=== PATIENT | female | born 1940 | race Caucasian/White ===

== ENCOUNTER 2019-02-08 05:58 | Inpatient (IN) ==
--- NOTE | 2019-01-26 13:28 | PAT Medication Instructions ---
Medication Instructions Date of Service January 26, 2019 Home Medications [place]-3 Fish Oil 1 cap PO BID aspirin 81 mg PO QAM calcium carbonate [Calcium 500] 2 tab PO QAM coenzyme Q10 [CoQ-10] 30 mg PO BID estradiol [Estrace] 1 g VAGINAL WK [Glucosamine-MSM Complex] 1 tab PO BID levothyroxine 75 mcg PO QAM multivitamin 1 tab PO QAM oxyquinoline-sod.lauryl sulfat [Trimo-Tejeda Jelly] 1 dose VAGINAL WK pravastatin 40 mg PO UD Continue as directed pravastatin 40 mg PO UD (OK to take morning of surgery) oxyquinoline-sod.lauryl sulfat [Trimo-Tejeda Jelly] 1 dose VAGINAL WK STOP taking 2 weeks before surgery [place]-3 Fish Oil 1 cap PO BID coenzyme Q10 [CoQ-10] 30 mg PO BID [Glucosamine-MSM Complex] 1 tab PO BID If surgery is within 2 weeks, stop taking as soon as possible. DO NOT take the morning of surgery calcium carbonate [Calcium 500] 2 tab PO QAM multivitamin 1 tab PO QAM Take morning of surgery With a small sip of water, OTHERWISE NOTHING TO EAT OR DRINK AFTER MIDNIGHT: aspirin 81 mg PO QAM levothyroxine 75 mcg PO QAM Other Notes If you have any questions please call us at [phone] or [phone] or [phone] or [phone]
--- NOTE | 2019-01-27 11:20 | Anesthesiology Consultation ---
Date of Service January 27, 2019 Assessment & Plan (1) Encounter for pre-operative examination: *PT HAS A PESSARY AND IS CONCERNED ABOUT HAVING URINARY CATHETER WITH SURGERY--surgeon's office made aware of patient's concerns. Chart Review Chart Review: Acceptable Risk for Surgery and Patient seen in Pre Admission Testing Teaching & Discussion Instructed NPO after midnight before surgery, except medications with 15 cc of water. Medication instructions provided according to the PAT guidelines. History Surgery Operation Date: 02/08/19 10:40 Proposed Procedures p Right Knee Uni Compartment Versus - Erick Neal MD s Right Total Knee Replacement - Erick Neal MD Height/Weight Height: 5 ft 4 in Weight: 84.5 kg Allergies Allergy/AdvReac Type Severity Reaction Status Date / Time tramadol AdvReac Intermediate Parasthesias Verified 01/27/19 11:18 in 's Medications Home Medications Medication Instructions Recorded Confirmed Last Taken [place]-3 Fish Oil 1 cap PO BID 01/05/19 01/05/19 Unknown aspirin 81 mg PO QAM 01/05/19 01/05/19 Unknown calcium carbonate [Calcium 500] 2 tab PO QAM 01/05/19 01/05/19 Unknown coenzyme Q10 [CoQ-10] 30 mg PO BID 01/05/19 01/05/19 Unknown estradiol [Estrace] 1 g VAGINAL WK 01/05/19 01/05/19 Unknown wxefipxry-dkx-G-anders-herbal 21 1 tab PO BID 01/05/19 01/05/19 Unknown [Glucosamine-MSM Complex] levothyroxine 75 mcg PO QAM 01/05/19 01/05/19 Unknown multivitamin 1 tab PO QAM 01/05/19 01/05/19 Unknown oxyquinoline-sod.lauryl sulfat 1 dose VAGINAL WK 01/05/19 01/05/19 Unknown [Trimo-Tejeda Jelly] pravastatin 40 mg PO UD 01/05/19 01/05/19 Unknown Past Medical History Medical History GERD (gastroesophageal reflux disease) History of melanoma Hyperlipidemia Hypothyroidism Osteoarthritis Exercise / Class Metabolic Activity II 4-5 Yardwork/Stairs/Walk up hill (Denies CP or SOB with stairs) Past Surgical History Surgical History History of colonoscopy W/ POLYPECTOMY History of melanoma excision History of tooth extraction History of total hip arthroplasty BL Past Anesthesia History No Hx of Anesthesia Complications and No Family Hx of Anesthesia Complications Pt recalls nausea/vomiting in pre-op prior to 02/2018 [facility] "after they gave me something" -- nothing noted in records. History of PONV No Hx of PONV and No Hx of Motion Sickness Social History Smoking Status: Never smoker Do You Dip or Chew Tobacco: No Hx Alcohol Use: No Hx Substance Use: No substance use type: does not use Review of Systems Pt denies any recent chest pain, shortness of breath, palpitations, cough, fever or URI. Physical Exam Vital Signs BP: 136/61 P: 53bpm SPO2: 98% RA T: 97.7 F R: 16 ENMT Mouth: + small oral opening (VERY SMALL); no dental restorations, no chipped teeth and no loose teeth Thyromental Distance: > or= 3.5 Finger Breadths (4) Mallampati Class: II Missing a few teeth Neck + short neck; neck extension not limited Respiratory normal respiratory effort Auscultation: lungs clear to auscultation bilaterally Cardiovascular Rate/Rhythm: regular rate and regular rhythm Heart Sounds: no murmur Vessels: no carotid bruit Extremities: no edema Testing Chest X-Ray Date: 01/27/19 Findings: + NAD Laboratory Results 01/27/19 11:40 01/27/19 11:40 Blood Type A Positive 01/27/19 11:40 Antibody Screen NEGATIVE 01/27/19 11:40 PT 10.4 Seconds (9.0-12.0) 01/27/19 11:40 INR 1.0 (0.9-1.1) 01/27/19 11:40 APTT 25.9 Seconds (21.0-31.0) 01/27/19 11:40
--- NOTE | 2019-01-27 12:26 | XRay Report ---
XR chest Pre-admission PA/Lat CLINICAL HISTORY: pat preoperative evaluation COMPARISON STUDY: 06/25/2015 FINDINGS: The bones soft tissues and hemidiaphragms are normal. The cardiomediastinal silhouette is n ormal. The lungs are clear. The pulmonary vasculature is normal. IMPRESSION: Negative chest. The above report was generated using voice recognition software. It may contain grammatical, syntax or spelling errors. Electronically signed by: Yayo Florence M.D. 01/27/2019 12:25 PM
[2019-01-27 12:50] LABS: Basophils # (auto) 0.03 K/uL (0-0.2); Basophils % (auto) 0.4 %; Eosinophils % (auto) 4.2 %; Hematocrit (blood only) 40.9 % (37-47); Hemoglobin 13.6 g/dL (12.0-16.0); Immature Granulocytes # (auto) 0.01 K/uL (0.00-0.02); Immature Granulocytes % (auto) 0.1 %; Lymphocytes % (auto) 37.9 %; Mean Corpuscular Hgb Conc 33.3 g/dL (32-36); Mean Corpuscular Volume 90.5 fL (80-100); Mean Platelet Volume 10.2 fL (7.4-10.4); Monocytes # (auto) 0.56 K/uL (0.11-0.59); Monocytes % (auto) 7.9 %; Neutrophils # (auto) 3.52 K/uL (1.4-6.5); Neutrophils % (auto) 49.5 %; Platelet Count 250 K/uL (130-400); RDW Coefficient of Variation 13.4 % (11.5-14.5); RDW Standard Deviation 44.4 fL (36.4-46.3); Red Blood Count 4.52 M/uL (4.2-5.4); White Blood Count 7.12 K/uL (4.8-10.8)
[2019-01-27 13:07] LABS: Partial Thromboplastin Time 25.9 Seconds (21.0-31.0); Prothrombin Time 10.4 Seconds (9.0-12.0)
[2019-01-27 13:15] LABS: BUN Creatinine Ratio 21.2 (10-20); C Reactive Protein 0.36 mg/dl (0-0.29); Calcium 9.8 mg/dl (8.5-10.1); Creatinine Clr Calc Pharmacy 53.5 ml/min; Est GFR (African American) 68.3; Est GFR (Non-African American) 58.9; Potassium 4.7 mmol/L (3.5-5.1)
--- NOTE | 2019-02-05 13:02 | History and Physical Report ---
DATE OF ADMISSION: 02/08/2019 CHIEF COMPLAINT: Right knee pain. HISTORY OF PRESENT ILLNESS: A 78-year-old white female, very independent and active patient who is well known to me from previous hip replacements, who presents for treatment of her right knee. Over the past several years, she has developed increased pain and discomfort in her right knee. She did have a hip surgery, left one done in 2014, right one done in 2018, has done well from this. She has become more active. She has had more and more pain in the right knee. Localized in the medial side of her knee. The more she walks, the more it hurts. It started to debilitate her and limit her activity and her lifestyle and her ability to maintain an independent lifestyle. She has nighttime pain. It does swell. Also feels a little bit unstable to her at times and she would like to have this fixed. PAST MEDICAL HISTORY: 1. Hypothyroidism. 2. Melanoma resection. 3. Gastroesophageal reflux disease. 4. Elevated cholesterol. PAST SURGICAL HISTORY: Previous surgeries include: 1. Melanoma resection. 2. Cataract surgery. 3. Left hip replacement done on 06/29/2015. 4. Right hip replacement done on 03/25/2018. ALLERGIES: None. CURRENT MEDICINES: 1. Aspirin 81 mg daily. 2. Multivitamin. 3. Bone-Care 1000 mg a day. 4. [place]-3. 5. Coenzyme Q. 6. Glucosamine. 7. Chondroitin. 8. Levothyroxine 75 mcg a day. 9. Estrace once a week. 10. Diclofenac p.r.n. SOCIAL HISTORY: A 78-year-old white female. She lives by herself. Her daughter assists with her care. Quite active. Does not smoke. FAMILY HISTORY: Noncontributory. REVIEW OF HISTORY: Negative for diabetes, neurologic problem, vascular problem, bleeding disorders. No chest pain or shortness of breath. No history of DVT or PE. No known bleeding problems. PHYSICAL EXAMINATION: GENERAL: Reveals a healthy, pleasant, spry female. Looks to be in excellent health. HEENT: Benign. NECK: Supple. No lymphadenopathy. LUNGS: Clear to auscultation. HEART: Regular rate and rhythm. ABDOMEN: Soft, nontender, nondistended. EXTREMITIES: Grossly neurovascularly intact except as follows: Examination of the right knee reveals the patient walks with slightly antalgic gait. She has got varus alignment to her knee. She is tender over the medial joint line. She has got some slight bony hypertrophy medially. Small knee effusion. Range of motion is near full extension to 125 degrees of flexion. There is no instability. No pain with hip motion. X-RAYS: X-rays of the right knee reviewed. She has advanced right knee medial compartment DJD. She has complete loss of her medial joint space. She has subchondral sclerosis. She has got some osteophytes off the medial femoral condyle and medial tibial plateau. Her lateral patellofemoral joints looked pretty well preserved. With stress testing, medial side opens up and lateral side is pretty well preserved. ASSESSMENT: A 78-year-old white female with status post bilateral hip replacement with advanced right knee medial compartment degenerative joint disease. She has failed conservative treatment and would like to have her right knee fixed. PLAN: We talked about treatment options including partial versus full knee replacement. After further discussion, we are going to proceed with a right partial knee replacement. If we get in there and disease is too bad, we will do a full knee replacement. The risks and benefits of partial and full knee replacement were explained to the patient include but not limited to DVT, PE, , infection, neurological injury, vascular injury, bleeding problem, pain, limited range of motion, stiffness, failure to relieve her symptoms, incomplete relief of symptoms, need for further surgery in the future, fracture, leg length inequality, nerve palsy, etc. The patient understands and desires to proceed. Informed consent was obtained. The patient did not do well with pain medicines in the past and would like to just stick to Tylenol and we will see if we can manage her pain postoperatively with Tylenol. I did tell her she is liable to have a little bit more pain with this than with her hip surgery. She is planning to be discharged to home with either home health or outpatient therapy.
[2019-02-08] MEDS ORDERED: GABAPENTIN 300 MG PO SCH (06:00)
[2019-02-08] MEDS ORDERED: METOCLOPRAMIDE HCL 10 MG TABLET PO SCH (06:00)
[2019-02-08] MEDS ORDERED: LR 60ML/HR IV SCH (06:00)
[2019-02-08] MEDS ORDERED: BUPIVACAINE LIPOSOME/PF 266 MG, BUPIVACAINE/EPINEPHRINE 50 ML, SODIUM CHLORIDE 0.9% 30 ... INFIL SCH (06:00)
[2019-02-08] MEDS ORDERED: ACETAMINOPHEN 500 MG TAB PO SCH (06:00)
[2019-02-08] MEDS ORDERED: FAMOTIDINE 20 MG TAB PO SCH (06:00)
[2019-02-08] MEDS ORDERED: LR 500ML BOLUS, THEN 15ML/HR IV SCH (06:00)
[2019-02-08] MEDS ORDERED: CEFAZOLIN 2000MG 2,000 MG/15 ML SYR IV SCH (06:00)
[2019-02-08] MEDS ORDERED: EPINEPHrine INJ 1 MG/ML AMP ONE ×2 (06:31→08:51)
[2019-02-08] MEDS ORDERED: BUPIVACAINE 0.5 % 5 MG/1 ML PF 10ML VIAL ONE (06:31)
[2019-02-08] MEDS ORDERED: ROPIVACAINE 0.5% 5 MG/ML 30 ML VIAL ONE (06:31)
--- NOTE | 2019-02-08 06:49 | History & Physical Bridge Note ---
Date of Service February 08, 2019 History & Physical Bridge Note I have examined the patient, reviewed the History & Physical and in the interval since the performance of the History & Physical I have noted the following changes of clinical significance: no changes noted
[2019-02-08] MEDS ORDERED: MIDAZOLAM HCL 1 MG/ML 2ML VIAL ONE (07:06)
[2019-02-08] MEDS ORDERED: fentaNYL citrate 100 MCG/2 ML VIAL ONE (07:06)
[2019-02-08] MEDS ORDERED: SCOPOLAMINE 1.5 MG TDSY ONE (08:30)
[2019-02-08] MEDS: TRANEXAMIC ACID 1,000 MG **IV Pre-op IV SCH ×2 (08:44→10:21)
[2019-02-08] MEDS ORDERED: SCOPOLAMINE 1.5 MG TDSY TD SCH ×2 (08:45→13:00)
[2019-02-08] MEDS ORDERED: BUPIVACAINE 0.25% 30 ML VIAL ONE (08:51)
[2019-02-08] MEDS ORDERED: BUPIVACAINE LIPOSOME 1.3% 266 MG/20 ML VIAL ONE (08:52)
[2019-02-08] MEDS ORDERED: BACITRACIN INJ 50,000 UNIT VIAL ONE (08:52)
[2019-02-08] MEDS ORDERED: SODIUM CHLORIDE 0.9% PF 50 ML VIAL ONE (08:52)
[2019-02-08] MEDS ORDERED: ATROPINE SULFATE 0.1 MG/ML 10ML SYR IV PRN (09:05)
[2019-02-08] MEDS ORDERED: NALOXONE HCL 0.4 MG/1 ML VIAL/CARP IV PRN ×2 (09:05→12:05)
[2019-02-08] MEDS ORDERED: ePHEDrine sulfate 50 MG/ML AMP IV PRN (09:05)
[2019-02-08] MEDS ORDERED: FLUMAZENIL 0.1 MG/1 ML 10 ML VIAL IV PRN (09:05)
[2019-02-08] MEDS ORDERED: fentaNYL citrate 100 MCG/2 ML VIAL IV PRN (09:05)
[2019-02-08] MEDS ORDERED: PROMETHAZINE HCL 12.5 MG in SODIUM CHLORIDE 0.9% 50 ML IV PRN (09:05)
[2019-02-08] MEDS ORDERED: ONDANSETRON INJ 2 MG/ML 2 ML VIAL IV PRN ×2 (09:05→12:05)
[2019-02-08] MEDS ORDERED: ONDANSETRON INJ 2 MG/ML 2 ML VIAL ONE (09:50)
--- NOTE | 2019-02-08 10:58 | Post Operative Brief Note ---
Immediate Post Op Note v1 Date of Surgery February 08, 2019 Pre & Post Diagnosis Operation Date: 02/08/19 08:50 Pre-Op Diagnosis: RIGHT KNEE DEGENERATIVE JOINT DISEASE & KNEE PAIN Post-Op Diagnosis: RIGHT KNEE DEGENERATIVE JOINT DISEASE & KNEE PAIN Procedure Operation Date: 02/08/19 08:50 Actual Procedures p Right Knee Uni Compartment/ cemented(Right) - Erick Neal MD Surgeon Erick Neal MD Picking Crew Supervisor Tammy, PAC Estimated Blood Loss 25 Findings Consistent with Post-Op Diagnosis Fluids 700 cc Specimens Right Knee Drains Ernst Catheter Anesthesia Type Spinal MAC Complications none Disposition Accompanied Patient To Recovery: No Disposition: Recovery Room
--- NOTE | 2019-02-08 11:22 | XRay Report ---
RIGHT KNEE 2 VIEWS History: Right knee medial unicondylar prosthesis. Degenerative arthritis. Postop. FINDINGS: The patient is status post a right knee medial unicondylar prosthesis. The hardware is inta ct. No fracture or dislocation. Skin susan are in place. IMPRESSION: Right knee medial unicondylar prosthesis. No evidence for hardware complication. Electronically signed by: Corbin Lowry M.D. 02/08/2019 11:21 AM
--- NOTE | 2019-02-08 11:39 | Anesthesiology Progress Note ---
Date of Service February 08, 2019 Anesthesia Post Procedure Vital Signs Vital Signs: Temp Pulse Pulse Pulse Resp BP BP 02/08/19 11:35 36.6 C 02/08/19 11:21 65 16 120/56 L 02/08/19 11:20 67 12 02/08/19 11:16 62 19 108/58 L 02/08/19 11:15 68 20 02/08/19 11:11 65 14 127/58 L 02/08/19 11:06 78 14 128/65 02/08/19 11:05 36.5 C 78 78 15 128/65 02/08/19 06:41 36.3 C L 55 L 18 154/81 H Pulse Ox 02/08/19 11:35 98 02/08/19 11:21 100 02/08/19 11:20 100 02/08/19 11:16 100 02/08/19 11:15 100 02/08/19 11:11 100 02/08/19 11:06 100 02/08/19 11:05 97 02/08/19 06:41 98 Pain Intensity Right Knee: Pain Intensity: 0 Transfer of Care Handoff Completed per policy Notes Mental Status: alert / awake / arousable Patient Amnestic to Procedure: Yes Nausea / Vomiting: adequately controlled Pain: adequately controlled Airway Patency, RR, SpO2: stable & adequate BP & HR: stable & adequate Hydration State: stable & adequate Neuraxial Anesthesia: was administered and sensory block is resolving Anesthetic Complications: no major complications apparent
[2019-02-08] MEDS ORDERED: METOCLOPRAMIDE HCL INJ 5 MG/ML 2 ML VIAL IV PRN (12:05)
[2019-02-08] MEDS ORDERED: HYDROmorphone INJ 0.5 MG/0.5 ML SYR IV PRN (12:05)
[2019-02-08] MEDS ORDERED: ALUMINUM/MAGNESIUM SUSP 30 ML UDC PO PRN (12:05)
[2019-02-08] MEDS ORDERED: BISACODYL 10 MG SUPP PR PRN (12:05)
[2019-02-08] MEDS ORDERED: MAGNESIUM HYDROXIDE SUSP 30 ML UDC PO PRN (12:05)
[2019-02-08] MEDS ORDERED: PRAVASTATIN SOD 40 MG TAB PO SCH (12:05)
[2019-02-08] MEDS: ACETAMINOPHEN 500 MG TAB PO SCH ×3 (13:59→21:00)
[2019-02-08] MEDS: SODIUM CHLORIDE 0.9% 1000ML 1,000 ML IV SCH ×2 (14:00→22:46)
--- NOTE | 2019-02-08 14:11 | Operative Report ---
DATE OF OPERATION: 02/08/2019 SURGEON: Erick Neal MD AWNING CRAFTSPERSON: SRAVAN Plunkett PREOPERATIVE DIAGNOSIS: Right knee medial compartment degenerative joint disease. POSTOPERATIVE DIAGNOSIS: Same. PROCEDURE PERFORMED: Right Biomet [place] mobile-bearing partial knee replacement. COMPLICATIONS: None. ESTIMATED BLOOD LOSS: 25 mL. FLUID REPLACEMENT: 700 mL crystalloid fluid replacement. TOURNIQUET TIME: 64 minutes at 300 mmHg. ANESTHESIA: Spinal with adductor canal block. DRAINS: None. SPECIMENS: Right knee sent for pathology. OPERATIVE INDICATIONS: The patient is a 78-year-old very active, independent female who has had a long history of right knee pain that has gradually gotten worse over the past 4-5 years. She has been through extensive conservative treatment including injections and medicines without adequate relief. X-ray showed progressive medial compartment joint space loss. Her symptoms are localized in the medial side of her knee. She would like to proceed with partial knee replacement. OPERATIVE FINDINGS: Operative findings revealed advanced medial compartment DJD with grade 4 houq-jg-silq disease. Not much eburnation, but mostly just cartilage wear down to bone. The lateral and patellofemoral compartment revealed some mild degenerative changes, grade 2 at best. Her ACL was intact. OPERATIVE IMPLANTS: Operative implants consisted of: 1. A Biomet [place] size small femoral component. 2. A Biomet [place] size AA right medial tibial tray. 3. A 4 mm mobile-bearing insert. DESCRIPTION OF PROCEDURE: The patient was taken to the operating room, identified, and placed on the operating table in supine position. All contact areas were appropriately padded. IV antibiotics were provided by the anesthesia team. Spinal anesthetic and adductor canal block had been provided in the holding area. Ernst catheter was placed in sterile fashion. Right thigh tourniquet was then placed, and the right lower extremity was then prepped and draped in usual sterile fashion. The right leg was elevated and exsanguinated with Esmarch, and tourniquet was placed at 300 mmHg. An anterior approach of the right knee was then performed through a longitudinal incision extending from the superior pole of the patella to the medial aspect of the tibial tubercle. Sharp dissection was carried through subcutaneous tissue down below the extensor mechanism. A medial parapatellar arthrotomy incision was made. Some slight subperiosteal dissection was carried out medially. Great care was taken to protect the MCL. The fat pad was resected. I then examined the knee, and the lateral compartment was well preserved. The patellofemoral compartment looked well preserved. We elected to proceed with partial knee replacement. The osteophytes were taken off the intercondylar notch area. The femur was sized with a size small spoon. The external tibial alignment jig was then placed in the anterior face of the tibia and adjusted to the small spoon with a 4-G clamp. The tibial guide was pinned in place. The proximal tibial cut was made. The tibia sized to a AA. Attention was then drawn to the femur. The distal femur was entered with a sharp drill. The intramedullary canal was suctioned. The small femoral template was then placed on the distal femur and fixed to the IM roberto. The holes were drilled for the femoral component. The posterior cutting guide was placed, and the posterior cut was made. I then used the 0 spigot to mill the distal femur. I then resected the medial meniscus. I then trialed the knee, and the 4 feeler gauge fit in flexion and the 3 in extension. We then used the 3 spigot and milled the distal femur. I trialed the knee again, and it was still a little tight in extension, so I used the 4 spigot and milled the femur again. We then placed the trial implants, and the 4 feeler gauge fit appropriate in flexion and extension. We proceeded to place these implants. All trial implants were removed. The posterior osteophyte cutting guide was placed, and the posterior osteophyte was removed as well as the anterior bone for the femoral component. The cement drill was used to create holes in the distal femur for cement interdigitation. The tibial tray was then pinned, and the toothbrush blade was used to create the keel for the tibial tray. I then placed the trial implants again, and the 4 implant fit appropriately. We elected to place these implants. All trial implants were removed. I irrigated the wound extensively. A single patch of [place] G cement was mixed. A Biomet size AA right medial tibial tray was cemented in place followed by a small femoral component. All extraneous cement was removed. I brought the knee out into about 30 degrees short of full extension, placed the 4 paddle until the cement hardened. We then removed all extraneous cement. I then trialed the knee one more time, and we elected to place a 4 insert. The permanent 4 mm insert was placed. The knee appeared appropriately balanced. Attention was then drawn toward closing. The wound was irrigated with copious amounts of pulsatile lavage solution. I did inject locally with 100 mL of a combination of 20 mL of Exparel, 30 mL of normal saline, 50 mL of 0.25% Marcaine with epinephrine. The patient did receive 1 gram of tranexamic acid. The tourniquet was then let down for final tourniquet time of 64 minutes. Hemostasis was assured with use of electrocautery. The extensor mechanism was then closed with #1 Vicryl suture in a [id number] fashion. Extensor mechanism was checked and found to be intact. The subcutaneous tissue was then closed with 2 Dexon suture in a buried interrupted fashion. Skin was closed with skin susan. Leg was then cleaned, dried, and a sterile dressing of Xeroform, 4 x 4's, sterile cast padding, and Philip bandage were applied. The patient was then transferred to the recovery room in stable condition. The patient tolerated the procedure well with no complications. All needle and sponge counts were correct at the end of the operation. I attest to the content of the Intraoperative Record and any orders documented therein. Any exception s are noted below.
[2019-02-08] MEDS ORDERED: PRAVASTATIN SOD 20 MG TAB PO SCH (17:00)
[2019-02-08] MEDS: CHECK SCOPOLAMINE PATCH PLACEMENT SCH ×2 (17:15→23:37)
[2019-02-08] MEDS: FERROUS GLUCONATE 324 MG TAB PO SCH (17:21)
[2019-02-08] MEDS: CEFAZOLIN 2000MG 2,000 MG/15 ML SYR IV SCH (17:21)
[2019-02-08] MEDS: KETOROLAC TROMETHAMINE 15 MG/ML VIAL IV SCH ×2 (17:21→23:37)
--- NOTE | 2019-02-08 17:41 | Progress Note ---
DATE: 02/08/2019 SUBJECTIVE: A 78-year-old white female postop from a right partial knee replacement. She is doing well. Not having any pain yet. Feels a bit groggy. No chest pain or shortness of breath. Not feeling dizzy or lightheaded. OBJECTIVE: VITAL SIGNS: Temperature 36.2. Vital signs stable. PHYSICAL EXAMINATION: GENERAL: Reveals a pleasant elderly female. She is lying in bed, looks pretty comfortable. She is easily arousable, but falls asleep easily as well. LUNGS: Clear to auscultation. HEART: Regular rate and rhythm. ABDOMEN: Soft, nontender, nondistended. EXTREMITIES: Grossly neurovascularly intact except as follows: Examination of the right leg reveals the leg to be well aligned. Dressing is clean, dry and intact. She can dorsiflex and plantarflex her foot appropriately. She is neurologically intact. ASSESSMENT: A 78-year-old white female postoperative from a right partial knee replacement, doing reasonably well. Pain is controlled. She is neurologically intact. PLAN: 1. DVT prophylaxis including thigh-high TEDs, SCDs, and aspirin twice a day. 2. PT/OT. Weight bear as tolerated. Right total knee protocol. 3. Pain control, doing pretty well with current pain regimen. We are going to try and limit narcotics. She does not do well with Toradol. We will try and stick to Toradol and Tylenol. 4. Disposition: Plan to discharge to home. She may do some home health for a while. We will see how she is doing tomorrow.
[2019-02-08] MEDS: DOCUSATE SODIUM 100 MG CAP PO SCH (20:59)
[2019-02-08] MEDS: ASPIRIN 81 MG ECTAB PO SCH (20:59)
[2019-02-08] MEDS ORDERED: SENNA 8.6 MG TAB PO SCH (21:00)
[2019-02-08] MEDS ORDERED: NON-FORMULARY MEDICATION (Coenzyme Q10 [Coq-10] 30 MG) PO SCH (21:00)
[2019-02-09] MEDS: CEFAZOLIN 2000MG 2,000 MG/15 ML SYR IV SCH (01:41)
[2019-02-09] MEDS ORDERED: LEVOTHYROXINE SODIUM 75 MCG TABLET PO SCH (06:30)
[2019-02-09] MEDS: KETOROLAC TROMETHAMINE 15 MG/ML VIAL IV SCH ×3 (06:38→12:06)
[2019-02-09 06:40] LABS: Hematocrit (blood only) 35.4 % (37-47); Hemoglobin 11.7 g/dL (12.0-16.0); Mean Corpuscular Hgb Conc 33.1 g/dL (32-36); Mean Platelet Volume 9.7 fL (7.4-10.4); Platelet Count 181 K/uL (130-400); RDW Coefficient of Variation 13.9 % (11.5-14.5); RDW Standard Deviation 46.3 fL (36.4-46.3); Red Blood Count 3.89 M/uL (4.2-5.4); White Blood Count 6.58 K/uL (4.8-10.8)
[2019-02-09 07:11] LABS: BUN Creatinine Ratio 16.3 (10-20); Creatinine Clr Calc Pharmacy 49.6 ml/min; Est GFR (African American) 62.6; Potassium 4.4 mmol/L (3.5-5.1)
[2019-02-09] MEDS: ACETAMINOPHEN 500 MG TAB PO SCH (07:46)
[2019-02-09] MEDS: CHECK SCOPOLAMINE PATCH PLACEMENT SCH (07:47)
[2019-02-09] MEDS: FERROUS GLUCONATE 324 MG TAB PO SCH (07:49)
[2019-02-09] MEDS: ASPIRIN 81 MG ECTAB PO SCH (07:50)
[2019-02-09] MEDS: DOCUSATE SODIUM 100 MG CAP PO SCH (07:50)
[2019-02-09 07:57] VITALS: BP 130/80; TEMP 97.7; O2SAT 92
--- NOTE | 2019-02-09 08:11 | Anesthesiology Progress Note ---
Date of Service February 09, 2019 Anesthesia Post Procedure Vital Signs Vital Signs: Temp Pulse Pulse Pulse Resp BP BP 02/09/19 07:54 36.5 C 54 L 16 130/80 02/09/19 02:09 36.6 C 48 L 15 115/69 02/08/19 23:06 36.2 C L 51 L 16 128/78 02/08/19 19:04 36.4 C L 40 L 15 131/72 02/08/19 15:41 36.2 C L 51 L 15 118/71 02/08/19 13:45 51 L 18 117/75 02/08/19 12:48 53 L 18 100/60 02/08/19 12:29 72 18 123/75 02/08/19 11:55 36.4 C L 62 16 120/67 02/08/19 11:36 62 14 116/57 L 02/08/19 11:35 36.6 C 61 18 02/08/19 11:31 64 14 118/55 L 02/08/19 11:30 62 14 02/08/19 11:26 63 14 118/58 L 02/08/19 11:22 63 17 02/08/19 11:21 65 16 120/56 L 02/08/19 11:20 67 12 02/08/19 11:16 62 19 108/58 L 02/08/19 11:15 68 20 02/08/19 11:11 65 14 127/58 L 02/08/19 11:06 78 14 128/65 02/08/19 11:05 36.5 C 78 78 15 128/65 Pulse Ox 02/09/19 07:54 92 02/09/19 02:09 95 02/08/19 23:06 96 02/08/19 19:04 98 02/08/19 15:41 98 02/08/19 13:45 100 02/08/19 12:48 100 02/08/19 12:29 02/08/19 11:55 97 02/08/19 11:36 99 02/08/19 11:35 98 02/08/19 11:31 97 02/08/19 11:30 99 02/08/19 11:26 99 02/08/19 11:22 100 02/08/19 11:21 100 02/08/19 11:20 100 02/08/19 11:16 100 02/08/19 11:15 100 02/08/19 11:11 100 02/08/19 11:06 100 02/08/19 11:05 97 Pain Intensity Right Knee: Pain Intensity: 0 Notes Mental Status: alert / awake / arousable and participated in evaluation Patient Amnestic to Procedure: Yes Nausea / Vomiting: adequately controlled Pain: adequately controlled Airway Patency, RR, SpO2: stable & adequate BP & HR: stable & adequate Hydration State: stable & adequate Neuraxial Anesthesia: was administered and sensory block resolved Anesthetic Complications: no major complications apparent
[2019-02-09] MEDS ORDERED: MULTIVITAMIN TAB PO SCH ×2 (09:00)
[2019-02-09] MEDS ORDERED: CALCIUM CARBONATE 1250MG TAB PO SCH (09:00)
[2019-02-09 12:49] VITALS: PULSE 48
--- NOTE | 2019-02-09 13:35 | Progress Note ---
DATE: 02/09/2019 SUBJECTIVE: A 78-year-old white female postop day 1 from a right partial knee replacement. She is doing well. Pain is controlled with Tylenol. Therapy went well. No chest pain or shortness of breath. Anxious to get home. OBJECTIVE: VITAL SIGNS: Temperature 36.5. Vital signs stable. GENERAL: Physical examination shows a pleasant elderly female. She is sitting up at her bedside chair and looks comfortable. EXTREMITIES: Examination of the right leg reveals the dressing to be clean, dry and intact. She can dorsiflex and plantarflex her foot appropriately. She can do a good straight leg raise. She is neurologically intact. LABORATORY DATA: Hemoglobin is 11.7, hematocrit 35.4. Electrolytes are stable. ASSESSMENT: A 78-year-old white female postop day 1 from a right partial knee replacement, doing well. Pain is controlled. She is getting along reasonably well. PLAN: 1. DVT prophylaxis including thigh-high TEDs, SCDs, and aspirin twice a day. 2. PT/OT. Weight bear as tolerated. Right total knee protocol. 3. Pain control, doing well with current pain regimen. We are going to stick with Tylenol for pain control. 4. Disposition: She is planning to be discharged to home. She is going to do home therapy for now and see how things come along. I will be seeing her back 2 weeks postop.
--- NOTE | 2019-02-15 07:57 | Discharge Summary ---
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 SURGERY PERFORMED: Right partial knee replacement. SECONDARY DIAGNOSES: Hypothyroidism, melanoma, gastroesophageal reflux disease, elevated cholesterol. CONSULTS: None obtained. HISTORY AND PHYSICAL EXAMINATION: Well documented in the patient's chart. HOSPITAL COURSE: The patient was admitted on 02/08/2019 and underwent partial knee replacement. She tolerated the procedure well. There were no complications. She was transferred to the PACU postoperatively and later to the orthopedic floor for further care. She was given Ancef for antibiotic prophylaxis, INGA stockings, SCDs and aspirin for DVT prophylaxis. Vital signs were monitored during hospital stay and remained stable. She did not require any blood transfusions. There were no complications. By postoperative day 1, she was tolerating a regular diet, pain was controlled with oral pain medicine. She was participating in physical therapy. Postop day #1, she was discharged home. She was given printed discharge instructions including new prescriptions for Tylenol and aspirin. Continue home medications with the exception of her home dose of aspirin which was changed. Continue physical therapy, weightbearing as tolerated, INGA stockings. Follow up in approximately 2 weeks postop or sooner if any problems or concerns.
== END 2019-02-09 13:50 | disposition home or self-care (01) | DRG 470 ==
LOC: ASU 05:58 → 3E 11:02

== ENCOUNTER 2023-07-08 09:32 | Inpatient (IN) ==
--- NOTE | 2023-07-08 09:55 | Emergency Department Note ---
Impression & Plan Symptomatic bradycardia, SANDEEP (acute kidney injury) ED Provider Note HISTORY OF PRESENT ILLNESS: Patient is an 83-year-old female presenting with shortness of breath and lightheadedness. Patient reports that since yesterday she has been having some significant shortness of breath with any exertion, most notably when climbing her stairs from her basement. She states that she is intermittently been getting lightheaded as well. She is on amiodarone 400 mg twice daily for histor y of atrial flutter. She took 400 mg this morning. She went to her primary care provider's office for an outpatient follow-up today and was noted to be bradycardic at the clinic. Given her symptoms and her bradycardia, they called 911 for transfer to the ER. Other than her amiodarone being increased over the last 10 days, she has not had any other changes in medications. Denies any chest pain. Denies any shortness of breath at rest. She is on Eliquis and has not missed any doses. Denies any recent fevers, cough or abdominal pain. ROS: as above PHYSICAL EXAM: Constitutional: Patient appears in no acute distress. HENT: Head: Normocephalic and atraumatic. Eyes: EOMI, PERRL Mouth/Throat: Mucous membranes moist. Neck: Trachea midline. Neck supple. Cardiovascular: Bradycardic with regular rhythm. No murmurs, rubs or gallops. Intact distal pulses. Pulmonary/Chest: No respiratory distress. Breath sounds clear and equal bilaterally. No wheezes or rales. Abdominal: Abdomen soft, no tenderness, rebound or guarding. Musculoskeletal: No edema, tenderness or deformity noted. Skin: Warm and dry. No rash, erythema, pallor or cyanosis Psychiatric: Appropriate mood and affect for situation. Neurological: Alert and keenly responsive. CN II-XII grossly intact, moving all extremities equally and fully. MDM: - Vitals signs showed hypertension and bradycardia. - History obtained via patient. Patient presents with shortness of breath and lightheadedness. Patient reports that since yesterday she been having some shortness of breath with exertion and lightheadedness. She was admitted to the hospital recently in atrial flutter and she was discharged on 400 mg amiodarone twice daily. She states she took 400 mg this morning. She went to her PCPs office for follow-up clinic appointment and was found to be bradycardic and symptomatic in the clinic, prompting transfer to the ER. Patient denies any chest pain. She is on Eliquis. - Chronic conditions affecting care: hypothyroidism; HLD; Atrial flutter - Differential diagnoses include, but are not limited to: Dysrhythmia; electrolyte abnormality; ACS - Order placed for continuous cardiac monitoring. At this time, monitor showed rate of 42 bpm with normal sinus rhythm, per my interpretation. - External medical records reviewed. EMS run sheet reviewed. No medications given pre-hospital. - EKG reviewed by myself showed normal sinus rhythm. Rate bradycardic at 43 bpm. QTc 373. No acute ischemic changes. No obvious heart block. - Laboratory workup interpreted by myself showed normal WBC; stable electrolytes; SANDEEP (Cr 1.22 - baseline 1.0); normal troponin; elevated TSH (11.41) - CXR negative for pneumonia, per my interpretation. Noted to have a small right-sided pleural effusion - Discussed case with [facility] power plant technician, Dr. Loomis at 11:08 AM. He recommended holding the patient's amiodarone until follow-up with Dr. Win's clinic. He thought the patient could be discharged as she is hemodynamically stable and her work-up generally unremarkable. - Attempted to sit patient upright for an ambulatory challenge, but she became very lightheaded and dizzy with her heart rate of 37. Will admit for symptomatic bradycardia at this time. Bradycardia is likely secondary to her amiodarone dosing, but can reassess once the amiodarone has gone out of her system. - Discussion was had with child protective services social worker about patient's case and need for admission - Hospitalist consulted for admission - Patient admitted to [facility] hospitalist service for further evaluation and management. ASSESSMENT AND PLAN: Diagnosis: Symptomatic bradycardia; SANDEEP Plan: Admit Past Med/Surg History Medical History (Updated 07/08/23 @ 12:16 by Dionna Monroe MD) Atrial flutter Bursitis of left hip Elevated troponin Encounter for pre-operative examination GERD (gastroesophageal reflux disease) History of cardioversion History of melanoma Hyperlipidemia Hypothyroidism Mass of right forearm Osteoarthritis SOB (shortness of breath) Surgical History History of colonoscopy W/ POLYPECTOMY History of melanoma excision History of tooth extraction History of total hip arthroplasty BL Status post right partial knee replacement Family History Father Lung disease Sister Cancer Breast cancer Brother Heart disease Myocardial infarction Denies family history of Ovarian cancer Prostate cancer Colorectal cancer Social History Smoking Status: Never smoker Second Hand Exposure: No; Do You Dip or Chew Tobacco: No; Hx Alcohol Use: No Hx Substance Use: No Preferred Language: Croatian Communication Ability: Effective Visual Impairment: Limited Hearing Ability: Use of Hearing Aid Heat Treating Operator Required: No Beliefs That Will Affect Care: None marital status: / Current Living Situation: Alone current occupational status: retired How many Children do You have: 1 Feels Safe at Home: Yes Childhood Exposure to Second-Hand Smoke: No Diet: regular caffeine: Yes during the past year weight has: remained stable Dental Care, Regularly: Yes Physical Activity Frequency: Does not Exercise Seatbelt Use: always Sunscreen Use: Yes Do you think of yourself as: straight/heterosexual Gender Identity: Female Assistive Devices: Cane and Walker Allergies Allergies Allergy/AdvReac Type Severity Reaction Status Date / Time tramadol AdvReac Intermediate Parasthesias Verified 07/08/23 07:28 in [facility] clindamycin AdvReac Unknown Verified 07/08/23 07:28 Home Meds Home Medications Medication Instructions Recorded Confirmed multivitamin 1 tab PO QAM 01/05/19 07/08/23 calcium carbonate 600 mg calcium 600 mg PO BID 06/29/23 07/08/23 (1,500 mg) tablet (Calcium) losartan 25 mg tablet 12.5 mg PO QPM 06/29/23 07/08/23 pravastatin 40 mg tablet 40 mg PO QPM 06/29/23 07/08/23 ascorbate calcium (vitamin C) 500 500 mg PO DAILY 07/08/23 07/08/23 mg tablet levothyroxine 88 mcg tablet 88 mcg PO QAM 07/08/23 07/08/23 Previous Rx's Medication Instructions Recorded apixaban 5 mg tablet (Eliquis) 5 mg PO BID #60 tabs 07/01/23 amiodarone 200 mg tablet 400 mg PO BIDM #60 tabs 07/02/23 Results & Data (ED) Vital Signs Vital Signs - 24 hr 07/08/23 09:40 07/08/23 09:25 07/08/23 09:26 Temperature Source Oral Pulse Rate 46 L 40 L Pulse Rate [Apical] Pulse Rhythm [Apical] Pulse Strength [Apical] Respiratory Rate 18 Respiratory Effort / Characteristics Non-Labored Spontaneous Respiratory Depth Normal Respiratory Pattern Regular Blood Pressure 177/91 H Blood Pressure [Right Arm] Blood Pressure Mean 119 Blood Pressure Mean [Right Arm] Blood Pressure Position [Right Arm] Pulse Oximetry 97 97 Oxygen Delivery Method Room Air Room Air Sepsis Recent Fever Within 48 Hours No Sepsis New/Unexplained Change in Mental Status No Sepsis Action Taken by Nursing No Action Required 07/08/23 10:00 07/08/23 10:30 07/08/23 11:00 Temperature Source Pulse Rate Pulse Rate [Apical] 42 L 43 L 42 L Pulse Rhythm [Apical] Regular Regular Regular Pulse Strength [Apical] Normal Normal Normal Respiratory Rate 20 18 18 Respiratory Effort / Characteristics Non-Labored Spontaneous Non-Labored Spontaneous Respiratory Depth Normal Normal Respiratory Pattern Regular Regular Blood Pressure Blood Pressure [Right Arm] 161/74 H 149/71 H 177/91 H Blood Pressure Mean Blood Pressure Mean [Right Arm] 103 97 119 Blood Pressure Position [Right Arm] Sitting Pulse Oximetry 97 94 96 Oxygen Delivery Method Room Air Room Air Room Air Sepsis Recent Fever Within 48 Hours Sepsis New/Unexplained Change in Mental Status Sepsis Action Taken by Nursing Laboratory Data 07/08/23 09:46 07/08/23 09:46 Lab Results 07/08/23 07/08/23 Range/Units 09:46 09:46 WBC 6.80 (4.8-10.8) K/ul RBC 4.27 (4.20-5.40) M/uL Hgb 12.8 (12.0-16.0) g/dl Hct 39.4 (37.0-47.0) % MCV 92.3 (80.0-100.0) fL MCH 30.0 (25.0-34.0) pg MCHC 32.5 (32.0-36.0) g/dL RDW Std Deviation 47.7 H (36.4-46.3) fL RDW Coeff of Vangie 14.2 (11.5-14.5) % Plt Count 254 (130-400) K/uL MPV 10.1 (9.4-12.4) fL Immature Gran % (Auto) 0.4 % Neut % (Auto) 59.0 % Lymph % (Auto) 28.4 % [place] % (Auto) 8.2 % Eos % (Auto) 2.8 % Baso % (Auto) 1.2 % Neut # (Auto) 4.01 (1.40-6.50) K/uL Lymph # (Auto) 1.93 (1.20-3.40) K/uL [place] # (Auto) 0.56 (0.11-0.59) K/uL Eos # (Auto) 0.19 (0.00-0.50) K/uL Baso # (Auto) 0.08 (0.00-0.20) K/uL Immature Gran # (Auto) 0.03 (0.01-0.20) K/uL Sodium 140 (136-145) mmol/L Potassium 4.2 (3.5-5.1) mmol/L Chloride 106 (98-107) mmol/L Carbon Dioxide 28 (21-32) mmol/L Anion Gap 6 (3-11) BUN 15 (6-23) mg/dl Creatinine 1.22 H (0.6-1.2) mg/dl Est Cr Clr Drug Dosing 34.3 ml/min Est GFR ( Amer) 48.1 ml/min Est GFR (Non-Af Amer) 41.5 ml/min BUN/Creatinine Ratio 12.3 (10-20) Glucose 90 (70-99(Fasting)) mg/dl Calcium 9.8 (8.6-10.3) mg/dl Magnesium 2.1 (1.7-2.4) mg/dl Total Bilirubin 0.6 (0.2-1.0) mg/dl AST 26 (13-39) U/L ALT 42 (7-52) U/L Alkaline Phosphatase 62 (34-104) U/L Troponin I High Sens 7.5 (0-14) pg/ml Total Protein 6.8 (6.0-8.3) gm/dl Albumin 4.4 (3.4-5.0) gm/dl Globulin 2.4 L (2.5-4.0) gm/dl Albumin/Globulin Ratio 1.8 (0.9-2) TSH 11.410 H (0.300-4.500) uIu/ml Free T4 1.00 (0.61-1.60) ng/dl Imaging Data Radiologist's Impression: Chest X-Ray 07/08/23 09:39 XR chest 1V portable HISTORY: Dysrhythmia COMPARISON: Chest 06/29/2023. FINDINGS: No pneumothorax. The cardiac silhouette remains mildly enlarged. Mild interstitial thickening which is likely chronic. Small right pleural effusion. No evidence for pulmonary edema. There are patchy right basilar densities. IMPRESSION: 1. Small right pleural effusion with patchy right basilar densities. This may represent atelectasis or pneumonia. 2. Stable mild cardiomegaly. ACT 112: Negative or not required by law. Electronically signed by: Corbin Lowry M.D. 07/08/2023 10:22 AM Discharge Plan Visit Data Chief Complaint: Bradycardia Stated Complaint: bradycardia ED Provider: Dionna Monroe Discharge Problem: Symptomatic bradycardia, SANDEEP (acute kidney injury) Forms Stand Alone Forms: [facility] [employer] Prescriptions Prescriptions: No Action amiodarone 200 mg tablet 400 mg PO BIDM Qty: 60 0RF Patient Comments: 2nd with supper Rx Instructions: Amiodarone is 400 mg twice daily for 10 days then decrease to 200 mg only once a day-PER DC SUMMARY 07/01 ascorbate calcium (vitamin C) 500 mg tablet 500 mg PO DAILY multivitamin Tablet 1 tab PO QAM calcium carbonate [Calcium 600] 600 mg calcium (1,500 mg) Tablet 600 mg PO BID Patient Comments: 2nd dose with supper losartan 25 mg tablet 12.5 mg PO QPM Rx Instructions: Take with dinner pravastatin 40 mg tablet 40 mg PO QPM Eliquis 5 mg Tablet 5 mg PO BID Qty: 60 0RF Patient Comments: 2nd dose with supper levothyroxine 88 mcg tablet 88 mcg PO QAM Referrals Referrals: Latisha Gomez DO [Primary Care Provider] -
[2023-07-08 09:59] LABS: Basophils # (auto) 0.08 K/uL (0.00-0.20); Basophils % (auto) 1.2 %; Eosinophils # (auto) 0.19 K/uL (0.00-0.50); Eosinophils % (auto) 2.8 %; Hematocrit (blood only) 39.4 % (37.0-47.0); Hemoglobin 12.8 g/dl (12.0-16.0); Immature Granulocytes # (auto) 0.03 K/uL (0.01-0.20); Immature Granulocytes % (auto) 0.4 %; Lymphocytes # (auto) 1.93 K/uL (1.20-3.40); Lymphocytes % (auto) 28.4 %; Mean Corpuscular Hgb Conc 32.5 g/dL (32.0-36.0); Mean Corpuscular Volume 92.3 fL (80.0-100.0); Mean Platelet Volume 10.1 fL (9.4-12.4); Monocytes # (auto) 0.56 K/uL (0.11-0.59); Monocytes % (auto) 8.2 %; Neutrophils # (auto) 4.01 K/uL (1.40-6.50); Platelet Count 254 K/uL (130-400); RDW Coefficient of Variation 14.2 % (11.5-14.5); RDW Standard Deviation 47.7 fL (36.4-46.3); Red Blood Count 4.27 M/uL (4.20-5.40)
[2023-07-08 10:21] LABS: Albumin Globulin Ratio 1.8 (0.9-2); Albumin Level 4.4 gm/dl (3.4-5.0); BUN Creatinine Ratio 12.3 (10-20); Bilirubin,Total 0.6 mg/dl (0.2-1.0); Calcium 9.8 mg/dl (8.6-10.3); Creatinine Clr Calc Pharmacy 34.3 ml/min; Est GFR (African American) 48.1 ml/min; Est GFR (Non-African American) 41.5 ml/min; Globulin 2.4 gm/dl (2.5-4.0); Magnesium 2.1 mg/dl (1.7-2.4); Potassium 4.2 mmol/L (3.5-5.1); Total Protein 6.8 gm/dl (6.0-8.3)
[2023-07-08 10:26] LABS: Troponin I High Sensitivity 7.5 pg/ml (0-14)
[2023-07-08 10:36] LABS: Thyroid Stimulating Hormone 11.41 uIu/ml (0.300-4.500)
--- NOTE | 2023-07-08 10:46 | XRay Report ---
XR chest 1V portable HISTORY: Dysrhythmia COMPARISON: Chest 06/29/2023. FINDINGS: No pneumothorax. The cardiac silhouette remains mildly enlarged. Mild interstitial thickeni ng which is likely chronic. Small right pleural effusion. No evidence for pulmonary edema. There are patchy right basilar densities. IMPRESSION: 1. Small right pleural effusion with patchy right basilar densities. This may represent atelectasis o r pneumonia. 2. Stable mild cardiomegaly. ACT 112: Negative or not required by law. Electronically signed by: Corbin Lowry M.D. 07/08/2023 10:22 AM
[2023-07-08] MEDS ORDERED: SODIUM CHLORIDE 0.9% 500 ML IV ONE (11:26)
--- NOTE | 2023-07-08 12:19 | History & Physical Report ---
Date of Service July 08, 2023 Assessment & Plan (1) Symptomatic bradycardia: Plan: Symptomatic bradycardia With recent admission and cardioversion for a flutter, has been on amiodarone for 800 mg twice daily load Was discussed with cards, recommended holding amiodarone and following for improvement in bradycardia. Patient initially recommended for discharge home and observation however on attempted standing/ambulation she was lightheaded/dizzy with heart rate of 3842 and has been recommended for monitoring while amiodarone is held and pending improvement in symptoms of symptomatic bradycardia At time of hospitalist assessment patient is asymptomatic while laying flat, positive chronotropics/pacing is not indicated at time of admitting assessment No troponin elevation If gradually improves with troponin uptrend and symptoms improve may follow-up as outpatient with [facility]. Will follow on medical telemetry (2) SANDEEP (acute kidney injury): Plan: Baseline creatinine around 1, admitting creatinine 1.2 Losartan held Trend BMP daily Received IV fluid bolus in ER, defer additional. Appears near (3) Valvular heart disease: (4) Atrial flutter: Plan: S/p cardioversion without recurrence as noted (5) GERD (gastroesophageal reflux disease): Plan: Protonix prophylaxis ordered (6) Hyperlipidemia: Plan: Continue pravastatin (7) Hypothyroidism: Plan: Continue Synthroid, TSH pending Plan DVT prophylaxis: Anticoagulated due to history of a flutter, continue Eliquis Disposition: PCU Diet: Heart healthy CODE STATUS: Full code History of Present Illness Primary Care Provider: Latisha Gomez DO Rose is an 83-year-old female with recent hospitalization for atrial flutter s/p cardioversion and amiodarone load who presents with bradycardia following amiodarone 400 mg p.o. twice daily load. While in the ER she attempted to stand up and was lightheaded and dizzy with a heart rate of approximately 3842. She is recommended for observation for syme ptomatic bradycardia likely iatrogenic due to amiodarone, is recommended for monitoring and amiodarone hold. She does not have any chest pain, chest pressure, shortness of breath. No signs of recurrent ACS. EKG while in the ER is sinus bradycardia, no recurrence of atrial arrhythmia. Rose is seen at the bedside. She reports laying in bed she has no symptoms and feels well, but when she sat up she did get very lightheaded. She notes her heart rate was in the 50s yesterday, and then dropped even lower than that today. She has had some lightheadedness and weakness when attempting to go upstairs and walk. She reports she has not had any chest pressure or chest pain at any point. She has not passed out, denies syncope. No nausea/vomiting. Does have some shortness of breath with attempted exertion, none at rest. No wheezing. No fever/chills/sweats. She has been taking all her medications as directed, was concerned that her losartan could be causing low heart rate and that her amiodarone dose is too high. No other questions or concerns about Medical History: Reviewed Medications: Reviewed Surgical History: Reviewed Family history: Reviewed Allergies: Reviewed Social History: Reviewed Code Status: Full Allergies Allergy/AdvReac Type Severity Reaction Status Date / Time tramadol AdvReac Intermediate Parasthesias Verified 07/08/23 07:28 in [facility] clindamycin AdvReac Unknown Verified 07/08/23 07:28 Home Medications Medication Instructions Recorded Confirmed Type multivitamin 1 tab PO QAM 01/05/19 07/08/23 History calcium carbonate 600 mg calcium 600 mg PO BID 06/29/23 07/08/23 History (1,500 mg) tablet (Calcium) losartan 25 mg tablet 12.5 mg PO QPM 06/29/23 07/08/23 History pravastatin 40 mg tablet 40 mg PO QPM 06/29/23 07/08/23 History apixaban 5 mg tablet (Eliquis) 5 mg PO BID #60 tabs 07/01/23 07/08/23 Rx amiodarone 200 mg tablet 400 mg PO BIDM #60 tabs 07/02/23 07/08/23 Rx ascorbate calcium (vitamin C) 500 500 mg PO DAILY 07/08/23 07/08/23 History mg tablet levothyroxine 88 mcg tablet 88 mcg PO QAM 07/08/23 07/08/23 History Past Med/Surg History Medical History Atrial flutter Bursitis of left hip Elevated troponin Encounter for pre-operative examination GERD (gastroesophageal reflux disease) History of cardioversion History of melanoma Hyperlipidemia Hypothyroidism Mass of right forearm Osteoarthritis SOB (shortness of breath) Surgical History History of colonoscopy W/ POLYPECTOMY History of melanoma excision History of tooth extraction History of total hip arthroplasty BL Status post right partial knee replacement Family History Father Lung disease Sister Cancer Breast cancer Brother Heart disease Myocardial infarction Denies family history of Ovarian cancer Prostate cancer Colorectal cancer Social History Smoking Status: Never smoker Second Hand Exposure: No; Do You Dip or Chew Tobacco: No; Hx Alcohol Use: No Hx Substance Use: No Preferred Language: Hebrew Communication Ability: Effective Visual Impairment: Limited Hearing Ability: Use of Hearing Aid Testing Consultant Required: No Beliefs That Will Affect Care: None marital status: / Current Living Situation: Alone current occupational status: retired How many Children do You have: 1 Feels Safe at Home: Yes Childhood Exposure to Second-Hand Smoke: No Diet: regular caffeine: Yes during the past year weight has: remained stable Dental Care, Regularly: Yes Physical Activity Frequency: Does not Exercise Seatbelt Use: always Sunscreen Use: Yes Do you think of yourself as: straight/heterosexual Gender Identity: Female Assistive Devices: Cane and Walker Review of Systems Review of Systems: All systems reviewed & are unremarkable except as noted in HPI & below Physical Exam Physical Exam: General: A&Ox3. NAD. Cooperative. HEENT: Atraumatic, normocephalic. Vision and hearing grossly intact Pulm: CTAB A&P. -wheezes, -rales, -rhonchi. Symmetrical chest rise. No increased work of breathing. No respiratory distress. Cardiac: regular, brdaycardic, +sm. Radial pulses intact and symmetrical. Abdominal: Nontender, nondistended, soft. BS present. Extremities: Warm, dry. No edema Results & Data Results & Data Vital Signs (Past 12 Hours) Vital Signs Pulse Pulse Resp BP BP Pulse Ox O2 Del Method 07/08/23 11:00 42 L 18 177/91 H 96 Room Air 07/08/23 10:30 43 L 18 149/71 H 94 Room Air 07/08/23 10:00 42 L 20 161/74 H 97 Room Air 07/08/23 09:26 97 Room Air 07/08/23 09:25 40 L 18 177/91 H 97 Room Air 07/08/23 09:40 46 L PG Care Time/CCT Total # of Minutes Spent Total Time Spent with Patient: Total time spent is greater than 50% in coordination of care (as documented) at patient's floor/unit and/or counseling patient: Coding Level of Care Code 33864 INT INP/OBS CARE 3/75MIN Diagnoses Symptomatic bradycardia R00.1 SANDEEP (acute kidney injury) N17.9 Valvular heart disease I38 Atrial flutter I48.92 GERD (gastroesophageal reflux disease) K21.9 Hyperlipidemia E78.5 Hypothyroidism E03.9
[2023-07-08] MEDS ORDERED: ATROPINE SULFATE 0.1 MG/ML 10ML SYR IV PRN (12:30)
[2023-07-08 13:30] LABS: Appearance Urine Clear (Clear); Bacteria Urine Automated Negative (Negative); Bilirubin Urine Negative (Negative); Blood Urine Negative (Negative); Cast Urine Automated 0 /lpf (0-5); Color Urine Yellow; Epithelial Cell Urine Auto 0-5 /lpf (0-5); Glucose Urine UA Negative (Negative); Ketones Urine Negative (Negative); Leukocyte Esterase Urine Trace (Negative); Nitrite Urine Negative (Negative); Protein Urine Negative (Negative); RBC Urine Automated 0-4 /hpf (0-4); Specific Gravity Urine 1.007 (1.000-1.030); Urobilinogen Urine Negative (Negative)
--- NOTE | 2023-07-08 16:27 | Electrocardiogram Report ---
Test Reason : Blood Pressure : / mmHG Vent. Rate : 043 BPM Atrial Rate : 043 BPM P-R Int : 124 ms QRS Dur : 100 ms QT Int : 442 ms P-R-T Axes : 063 032 066 degrees QTc Int : 373 ms Marked sinus bradycardia Possible Left atrial enlargement Nonspecific T wave abnormality Abnormal ECG When compared with ECG of 30-JUN-2023 13:57, Premature atrial complexes are no longer Present QT has shortened Confirmed by Addi Loomis ([id number]) on 07/08/2023 4:26:54 PM Referred By: REFERRED SELF Confirmed By:Addi Loomis
[2023-07-08] MEDS ORDERED: LOSARTAN POTASSIUM 25 MG TAB PO SCH (21:00)
[2023-07-08] MEDS: PRAVASTATIN SOD 40 MG TAB PO SCH (21:18)
[2023-07-08] MEDS: CALCIUM CARBONATE 1250MG TAB PO SCH (21:18)
[2023-07-08] MEDS: APIXABAN 5 MG TABLET PO SCH (21:18)
[2023-07-09] MEDS: LEVOTHYROXINE SODIUM 88 MCG TABLET PO SCH (05:11)
[2023-07-09 06:27] LABS: Basophils # (auto) 0.05 K/uL (0.00-0.20); Basophils % (auto) 0.8 %; Eosinophils # (auto) 0.27 K/uL (0.00-0.50); Eosinophils % (auto) 4.2 %; Hematocrit (blood only) 37.9 % (37.0-47.0); Hemoglobin 12.2 g/dl (12.0-16.0); Immature Granulocytes # (auto) 0.03 K/uL (0.01-0.20); Immature Granulocytes % (auto) 0.5 %; Lymphocytes # (auto) 1.47 K/uL (1.20-3.40); Mean Corpuscular Hemoglobin 29.6 pg (25.0-34.0); Mean Corpuscular Hgb Conc 32.2 g/dL (32.0-36.0); Mean Platelet Volume 10.2 fL (9.4-12.4); Monocytes # (auto) 0.54 K/uL (0.11-0.59); Monocytes % (auto) 8.5 %; Neutrophils # (auto) 4.03 K/uL (1.40-6.50); Platelet Count 239 K/uL (130-400); RDW Coefficient of Variation 14.1 % (11.5-14.5); RDW Standard Deviation 46.9 fL (36.4-46.3); Red Blood Count 4.12 M/uL (4.20-5.40); White Blood Count 6.39 K/ul (4.8-10.8)
[2023-07-09 06:50] LABS: BUN Creatinine Ratio 12.9 (10-20); Calcium 9.3 mg/dl (8.6-10.3); Creatinine Clr Calc Pharmacy 35.6 ml/min; Est GFR (African American) 47.2 ml/min; Est GFR (Non-African American) 40.7 ml/min
[2023-07-09] MEDS: CALCIUM CARBONATE 1250MG TAB PO SCH ×2 (08:07→20:38)
[2023-07-09] MEDS: APIXABAN 5 MG TABLET PO SCH ×2 (08:08→20:38)
[2023-07-09] MEDS: ASCORBIC ACID 500 MG TAB PO SCH (08:08)
[2023-07-09] MEDS: MULTIVITAMIN TAB PO SCH (08:08)
--- NOTE | 2023-07-09 15:10 | Hospitalist Progress Note ---
Date of Service July 09, 2023 Assessment & Plan (1) Symptomatic bradycardia: (2) SANDEEP (acute kidney injury): (3) Valvular heart disease: (4) Atrial flutter: (5) GERD (gastroesophageal reflux disease): (6) History of melanoma: (7) Hyperlipidemia: Plan #Symptomatic Bradycardia Recent admission and cardioversion for a flutter Was on amiodarone 800mg BID loading dose Per cardiology, stop amiodarone and stable for d/c Trop neg #SANDEEP Creatinine stable at 1.2, baseline 1 Losartan held Trend BMP daily #Valvular Heart Disease #Atrial Flutter s/p cardioversion w/o recurrence #GERD protonix #HLD pravastatin #Hypothyroidism Synthroid, check TSH Admission and Anticipated Discharge Date Admission Date: July 08, 2023 Supervising Physician Co-Signing Physician Notes I personally examined the patient and verified all bowers points of history and exam, discussed case, and agree with decision making with Dr Lao Feeling better. Still low heart rates, but was able to walk without any s ignificant exertional symptoms. No symptoms at rest. Vitals noted, in general she is awake and alert pleasant no distress. HEENT normocephalic atraumatic mucous membranes moist. Breathing unlabored no accessory muscle use good effort. Symptomatic bradycardiaamiodarone induced versus sick sinus syndrome manifesting itselfhopefully amiodarone induced. The fact that her symptoms have resolved and her heart rate seem to be a little bit better make me optimistic that things will normalize simply by stopping the amiodarone. Given that she was symptomatic, and amiodarone has an extremely long half-life, we will watch her at least into tomorrow to make sure that we are not seeing simply ups and downs of symptoms before getting her home. Anticipate home with ongoing cardiac monitoring. Otherwise as above. Subjective 83 yo female recently hospitalized for a flutter s/p cardioversion and amiodarone load admitted for symptomatic bradycardia Remains bradycardic today. No further symptoms. Ambulating fine, no lightheadedness/weakness Review of Systems Review of Systems: reviewed, per HPI Physical Exam Physical Exam: General: patient resting comfortably, NAD, non-toxic in appearance, AA&O x 4, answers questions appropriately and follows commands. Skin: warm, dry, intact HEENT: NC/AT, anicteric sclera, conjunctiva without injection, moist mucus membranes, trachea midline, no thyromegaly, no JVD Heart: +S1/S2, bradycardic, no m/r/g Lungs: equal air entry bilaterally, no rales/rhonchi/wheezes Abd: +BS, soft, NT/ND, no masses/organomegaly/ascites Ext: warm, no clubbing/cyanosis or edema Neuro: nonfocal, patient AA&O x 4, speech intact, no facial droop, moving all extremities on command. Results & Data Results & Data Vital Signs (Past 12 Hours) Vital Signs Temp Pulse Pulse Resp BP BP Pulse Ox 07/09/23 14:39 140/66 07/09/23 11:08 36.5 C 42 L 19 157/76 H 97 07/09/23 08:02 47 L 07/09/23 07:40 36.3 C L 46 L 19 161/52 H 94 07/09/23 03:56 36.5 C 41 L 18 131/66 95 O2 Del Method 07/09/23 14:39 07/09/23 11:08 Room Air 07/09/23 08:02 07/09/23 07:40 Room Air 07/09/23 03:56 Room Air Resident Activity Tracking Resident Involvement: Resident Care Provided Care Provided: Adult Hospital Medicine
--- NOTE | 2023-07-09 16:19 | Cardiology Progress Note ---
Date of Service July 09, 2023 Assessment & Plan (1) Atrial flutter: (2) Symptomatic bradycardia: Plan 1. Bradycardia: It is very possible that she had an element of exertional intolerance associated with lower heart rates. She is not report symptoms of dizziness or presyncope. Heart rates prior to initiation of amiodarone were generally in the normal range. Most likely this is related to her medication which has been discontinued. I think it is fine to discontinue amiodarone altogether. I would anticipate the heart rate will gradually increase. I think she could be discharged any time from the standpoint of her bradycardia. 2. Atrial flutter: No documented recurrence. The patient does have a watch which monitors her heart rate although it appears to be quite inaccurate. She will have recurrence of atrial flutter at some point. However, the actual frequency is still unknown. She can continue on her systemic anticoagulation. We did discuss the possibility of catheter based therapy today. This would be a good option for recurrent episodes of atrial flutter and would obviate the need for anticoagulation moving forward. Admission and Anticipated Discharge Date Admission Date: July 08, 2023 Subjective The patient is an 83-year-old woman who was initially admitted to the hospital on June 29 with symptoms of progressive shortness of breath and dizziness. At that time she was noted to have an atrial flutter. This was a new diagnosis. The patient subsequently underwent transesophageal echocardiogram and a cardiov ersion. Due to brief episodes of atrial tachycardia and frequent atrial ectopy she was also placed on amiodarone and anticoagulation prior to discharge. On 07/08/2023 she presented to her primary care physician for a routine follow-up visit. She was discovered to have an element of bradycardia and sent to the emergency room for evaluation. The patient was interviewed in the presence of her daughter today. Her daughter provided some supplemental history. Since discharge the patient had been feeling well. There was some element of exertional dyspnea, but not severe. No dizziness or lightheadedness. No sense of palpitation. Here in the hospital the patient is feeling well. She was able to ambulate around the mast with a walker earlier today. She denies any dizziness or lightheadedness. No limiting dyspnea. Review of Systems Review of Systems: Per HPI. No other symptoms at home. No constitutional symptoms, fevers or chills. Eating and drinking well. Physical Exam Physical Exam: She is alert and oriented x3. Mood affect appear normal. She answered all questions appropriately. Forgetful at times. HEENT: Sclerae are anicteric. Pupils are equal and reactive to light and accommodation. Extraocular movements were intact. Neuro: Cranial nerves intact Lungs: Lungs are clear to auscultation bilaterally. There are no rales wheezes or rhonchi. She has normal respiratory effort without use of accessory muscles. There is normal pulmonary excursion. Cardiac: The rhythm was regular. S1 and S2 were normal. There are no murmurs on examination. The PMI was not markedly displaced on palpation. Abdomen: The abdomen was soft and nontender. Extremities: Patient has bilateral radial pulses that are equal in intensity. There is no evidence cyanosis or clubbing. There was no evidence of significant peripheral edema bilaterally. Skin: There are no rashes noted on examination today. Results & Data Vital Signs (Past 12 Hours) Vital Signs Temp Pulse Pulse Resp BP BP Pulse Ox 07/09/23 15:09 36.4 C L 43 L 18 131/60 94 07/09/23 14:39 140/66 07/09/23 11:08 36.5 C 42 L 19 157/76 H 97 07/09/23 08:02 47 L 07/09/23 07:40 36.3 C L 46 L 19 161/52 H 94 O2 Del Method 07/09/23 15:09 Room Air 07/09/23 14:39 07/09/23 11:08 Room Air 07/09/23 08:02 07/09/23 07:40 Room Air Laboratory Results Abnormal Lab Results 07/09/23 07/09/23 05:59 05:59 WBC 6.39 RBC 4.12 L Hgb 12.2 Hct 37.9 MCV 92.0 MCH 29.6 MCHC 32.2 RDW Std Deviation 46.9 H RDW Coeff of Vangie 14.1 Plt Count 239 MPV 10.2 Immature Gran % (Auto) 0.5 Neut % (Auto) 63.0 Lymph % (Auto) 23.0 [place] % (Auto) 8.5 Eos % (Auto) 4.2 Baso % (Auto) 0.8 Neut # (Auto) 4.03 Lymph # (Auto) 1.47 [place] # (Auto) 0.54 Eos # (Auto) 0.27 Baso # (Auto) 0.05 Immature Gran # (Auto) 0.03 Sodium 140 Potassium 4.0 Chloride 108 H Carbon Dioxide 25 Anion Gap 7 BUN 16 Creatinine 1.24 H Est Cr Clr Drug Dosing 35.6 Est GFR ( Amer) 47.2 Est GFR (Non-Af Amer) 40.7 BUN/Creatinine Ratio 12.9 Glucose 85 Calcium 9.3 Magnesium 2.0 PG Care Time/CCT Total # of Minutes Spent Total Time Spent with Patient: Total time spent is greater than 50% in coordination of care (as documented) at patient's floor/unit and/or counseling patient: Coding Level of Care Code 38699 SUB INP/OBS CARE 2/35MIN Diagnoses Atrial flutter I48.92 Symptomatic bradycardia R00.1
--- NOTE | 2023-07-09 16:55 | Billing Data ---
Date of Service July 09, 2023 Coding Level of Care Code 63756 SUB INP/OBS CARE MIN
[2023-07-09] MEDS: PRAVASTATIN SOD 40 MG TAB PO SCH (20:38)
[2023-07-10 06:20] LABS: Basophils # (auto) 0.07 K/uL (0.00-0.20); Basophils % (auto) 0.9 %; Eosinophils # (auto) 0.38 K/uL (0.00-0.50); Eosinophils % (auto) 5.1 %; Hematocrit (blood only) 38.1 % (37.0-47.0); Hemoglobin 12.5 g/dl (12.0-16.0); Immature Granulocytes # (auto) 0.03 K/uL (0.01-0.20); Immature Granulocytes % (auto) 0.4 %; Lymphocytes # (auto) 1.89 K/uL (1.20-3.40); Lymphocytes % (auto) 25.3 %; Mean Corpuscular Hgb Conc 32.8 g/dL (32.0-36.0); Mean Corpuscular Volume 91.6 fL (80.0-100.0); Mean Platelet Volume 10.3 fL (9.4-12.4); Monocytes # (auto) 0.65 K/uL (0.11-0.59); Monocytes % (auto) 8.7 %; Neutrophils # (auto) 4.45 K/uL (1.40-6.50); Neutrophils % (auto) 59.6 %; Platelet Count 258 K/uL (130-400); RDW Coefficient of Variation 14.3 % (11.5-14.5); RDW Standard Deviation 47.7 fL (36.4-46.3); Red Blood Count 4.16 M/uL (4.20-5.40); White Blood Count 7.47 K/ul (4.8-10.8)
[2023-07-10 06:24] LABS: Calcium 9.6 mg/dl (8.6-10.3); Creatinine Clr Calc Pharmacy 29.9 ml/min; Est GFR (African American) 38.4 ml/min; Est GFR (Non-African American) 33.1 ml/min; Potassium 4.5 mmol/L (3.5-5.1)
[2023-07-10] MEDS: LEVOTHYROXINE SODIUM 88 MCG TABLET PO SCH (06:35)
--- NOTE | 2023-07-10 06:58 | Hospitalist Progress Note ---
Date of Service July 10, 2023 Assessment & Plan (1) Symptomatic bradycardia: (2) SANDEEP (acute kidney injury): (3) Valvular heart disease: (4) Atrial flutter: (5) GERD (gastroesophageal reflux disease): (6) History of melanoma: (7) Hyperlipidemia: Plan #Symptomatic Bradycardia Recent admission and cardioversion for a flutter Was on amiodarone 800mg BID loading dose Per cardiology, stop amiodarone and stable for d/c Trop neg #SANDEEP Creatinine stable at 1.2, baseline 1 Losartan held Trend BMP daily #Valvular Heart Disease #Atrial Flutter s/p cardioversion w/o recurrence #GERD protonix #HLD pravastatin #Hypothyroidism Synthroid, check TSH Admission and Anticipated Discharge Date Admission Date: July 08, 2023 Subjective 83 yo female recently hospitalized for a flutter s/p cardioversion and amiodarone load admitted for symptomatic bradycardia Remains bradycardic today. No further symptoms. Ambulating fine, no lightheadedness/weakness Review of Systems Review of Systems: reviewed, per HPI Physical Exam Physical Exam: General: patient resting comfortably, NAD, non-toxic in appearance, AA&O x 4, answers questions appropriately and follows commands. Skin: warm, dry, intact HEENT: NC/AT, anicteric sclera, conjunctiva without injection, moist mucus membranes, trachea midline, no thyromegaly, no JVD Heart: +S1/S2, bradycardic, no m/r/g Lungs: equal air entry bilaterally, no rales/rhonchi/wheezes Abd: +BS, soft, NT/ND, no masses/organomegaly/ascites Ext: warm, no clubbing/cyanosis or edema Neuro: nonfocal, patient AA&O x 4, speech intact, no facial droop, moving all extremities on command. Results & Data Results & Data Vital Signs (Past 12 Hours) Vital Signs Temp Pulse Pulse Resp BP Pulse Ox O2 Del Method 07/10/23 02:36 36.4 C L 41 L 15 147/73 H 96 Room Air 07/10/23 00:00 40 L 07/09/23 23:04 36.6 C 43 L 18 143/63 H 96 Room Air 07/09/23 19:42 42 L 18 167/73 H 96 Room Air
[2023-07-10] MEDS ORDERED: LACTATED RINGER'S 500 ML IV ONE (07:29)
[2023-07-10] MEDS: CALCIUM CARBONATE 1250MG TAB PO SCH (08:04)
[2023-07-10] MEDS: ASCORBIC ACID 500 MG TAB PO SCH (08:04)
[2023-07-10] MEDS: APIXABAN 5 MG TABLET PO SCH (08:04)
[2023-07-10] MEDS: MULTIVITAMIN TAB PO SCH (08:05)
--- NOTE | 2023-07-10 09:30 | Discharge Summary ---
Date of Service July 10, 2023 Admission HPI Per Admitting Provider Rose is an 83-year-old female with recent hospitalization for atrial flutter s/p cardioversion and amiodarone load who presents with bradycardia following amiodarone 400 mg p.o. twice daily load. While in the ER she attempted to stand up and was lightheaded and dizzy with a heart rate of approximately 3842. She is recommended for observation for syme ptomatic bradycardia likely iatrogenic due to amiodarone, is recommended for monitoring and amiodarone hold. She does not have any chest pain, chest pressure, shortness of breath. No signs of recurrent ACS. EKG while in the ER is sinus bradycardia, no recurrence of atrial arrhythmia. Rose is seen at the bedside. She reports laying in bed she has no symptoms and feels well, but when she sat up she did get very lightheaded. She notes her heart rate was in the 50s yesterday, and then dropped even lower than that today. She has had some lightheadedness and weakness when attempting to go upstairs and walk. She reports she has not had any chest pressure or chest pain at any point. She has not passed out, denies syncope. No nausea/vomiting. Does have some shortness of breath with attempted exertion, none at rest. No wheezing. No fever/chills/sweats. She has been taking all her medications as directed, was concerned that her losartan could be causing low heart rate and that her amiodarone dose is too high. No other questions or concerns about Medical History: Reviewed Medications: Reviewed Surgical History: Reviewed Family history: Reviewed Allergies: Reviewed Social History: Reviewed Code Status: Full Principal Diagnosis Symptomatic bradycardia Discharge Exam General: patient resting comfortably, NAD, non-toxic in appearance, AA&O x 4, answers questions appropriately and follows commands. Skin: warm, dry, intact HEENT: NC/AT, anicteric sclera, conjunctiva without injection, moist mucus membranes, trachea midline, no thyromegaly, no JVD Heart: +S1/S2, bradycardic, no m/r/g Lungs: equal air entry bilaterally, no rales/rhonchi/wheezes Abd: +BS, soft, NT/ND, no masses/organomegaly/ascites Ext: warm, no clubbing/cyanosis or edema Neuro: nonfocal, patient AA&O x 4, speech intact, no facial droop, moving all extremities on command. Discharge Data Allergies Allergy/AdvReac Type Severity Reaction Status Date / Time tramadol AdvReac Intermediate Parasthesias Verified 07/08/23 07:28 in LE's clindamycin AdvReac Unknown Verified 07/08/23 07:28 Consultations 07/08/23 12:00 ED Decision to Admit Stat 07/09/23 13:55 Consult Cardiology Routine Hospital Course (1) Symptomatic bradycardia: (2) SANDEEP (acute kidney injury): (3) Valvular heart disease: (4) Atrial flutter: (5) GERD (gastroesophageal reflux disease): (6) History of melanoma: (7) Hyperlipidemia: Plan Rose was admitted for lightheadedness and weakness. Found to have heart rate in the 30s. She was recently started on amiodarone after cardioversion for atrial flutter. She was seen by cardiology while in the hospital who felt her bradycardia was likely related to amiodarone and not as a result of sick-sinus syndrome. She will discontinue amiodarone going forward. She will likely have recurrence of her atrial flutter in the future. She should follow closely with cardiology who will consider ablative therapy if this reoccurs. Discharged 07/10/23. #Symptomatic Bradycardia Recent admission and cardioversion for a flutter Was on amiodarone 800mg BID loading dose Per cardiology, stop amiodarone and stable for d/c Trop neg #SANDEEP Creatinine stable at 1.2, baseline 1 Losartan held Trend BMP daily #Valvular Heart Disease #Atrial Flutter s/p cardioversion w/o recurrence #GERD protonix #HLD pravastatin #Hypothyroidism Synthroid, check TSH Total Time Total Time Spent Total Time Spent (In Minutes): <30 Discharge Plan Discharge Items Patient Disposition: Home - Self-Care Reason For Visit: BRADYCARDIA, SUSPECTED 2/2 AMIO Discharge Diagnosis: symptomatic bradycardia 2/2 amiodarone Activity: Resume your previous activity Non-emergency contact: Primary Care Provider and Sales And Merchandising Associate Call non-emergency contact if: you have any medication questions and your symptoms worsen Follow-up/Referrals: Mitra Rodriguez PA-C [Physician [employer] Installation Manager] - 07/14/23 11:00 am (Cardiology follow up) Short,Latisha Iraj-Radha, DO [Primary Care Provider] - 07/20/23 10:30 am (PCP hospital follow up) Diet: Heart Healthy Add Attending Provider Instructions: You were admitted to the hospital for slow heart rate. Your amiodarone was stopped and we monitored you for symptoms. You were seen by cardiology who felt you were safe to go home. You will no longer take amiodarone when you go home. It will take several weeks for the amiodarone to be eliminated from your body. In the coming days and weeks you should take it easy and not perform any strenuous activity. You had a mild increase in the number we use to assess kidney function (creatinine). It is very important to drink plenty of water when you get home. A goal of 2 liters or 60-80 oz should be attempted. A discharge summary will be sent to your primary care physician to ensure continuity of care. Please bring this discharge summary with you to your next office appointment so that your provider can review it at that time. Medications: Your medication list has been reviewed and reconciled upon discharge to ensure accuracy and continuity of care. An updated list of all your medications is included with your hospital discharge paperwork. Please review this list closely and make note of any changes to your medications. STOP taking amiodarone when you return home. You should continue all of your other medications as usual. Follow up appointments: - Make a follow up appointment with your PCP within the next week. It is very important that you follow up with them shortly after discharge from the hospital. - Keep all of your follow up appointments as already scheduled. If you cannot make an appointment, notify your provider. CONTACT YOUR PRIMARY CARE PROVIDER if you experience any of the following: - Difficulty following your treatment plan - Difficulty taking any of your medications CALL 911 OR GO TO THE EMERGENCY DEPARTMENT if you experience any of the following: You feel lightheaded or dizzy - Sudden, severe abdominal pain or nausea/vomiting - Severe chest pain or chest pain that radiates to your jaw or arm - Sudden, severe shortness of breath or difficulty breathing Pending Studies at Discharge: No Stand-Alone Forms: My [facility] [employer] Medications and DC Order Prescriptions: Continued ascorbate calcium (vitamin C) 500 mg tablet 500 mg PO DAILY multivitamin Tablet 1 tab PO QAM calcium carbonate [Calcium 600] 600 mg calcium (1,500 mg) Tablet 600 mg PO BID Patient Comments: 2nd dose with supper losartan 25 mg tablet 12.5 mg PO QPM Rx Instructions: Take with dinner pravastatin 40 mg tablet 40 mg PO QPM Eliquis 5 mg Tablet 5 mg PO BID Qty: 60 0RF Patient Comments: 2nd dose with supper levothyroxine 88 mcg tablet 88 mcg PO QAM Discontinued amiodarone 200 mg tablet 400 mg PO BIDM Qty: 60 0RF Patient Comments: 2nd with supper Rx Instructions: Amiodarone is 400 mg twice daily for 10 days then decrease to 200 mg only once a day-PER DC SUMMARY 07/01 Discharge Orders: Discharge Order (Routine); Ordered 07/10/23 Ordered By: Jose Lao Admission Data Admit Date/Time: 07/08/23 12:21 Attending Provider: Jamaal Encinas Admit Provider: Wilmer Rodrigues Primary Care Provider: Latisha Gomez Other Providers: Wilmer Rodrigues ; Addi Loomis Other Interventions: Discharge Summary Assessment (RN) Last Done: 07/10/23 15:45 Supervising Physician Co-Signing Physician Notes I personally examined the patient and verified all bowers points of history and exam, discussed case, and agree with decision making with Dr Lao Feels okay. No exertional symptoms. Walking around in the room. No shortness of breath dyspnea on exertion weakness or lightheadedness. Still bradycardic but no symptoms now. Was not drinking much the last 2 days having been in the ER and then in the hospital. Vitals noted, in general she is awake and alert pleasant no distress. HEENT normocephalic atraumatic mucous membranes moist. Breathing unlabored no accessory muscle use good effort. Symptomatic bradycardiaamiodarone induced versus sick sinus syndrome manifesting itselfhopefully amiodarone induced. The fact that her symptoms have resolved and her heart rate seem to be a little bit better make me optimistic that things will normalize simply by stopping the amiodarone. Given that she was symptomatic, and amiodarone has an extremely long half-life, this will be for ongoing follow-up, but with asymptomatic nowdefinitely safe for home. Anticipate ongoing cardiac monitoring (probably with wearable tach, although probably also spot checking with an event monitor). Acute kidney injury appears to be due to dehydration not poor forward flow from bradycardia (especially given that she is not symptomatic anymore)was given fluids, encourage p.o. fluid intake. Safe/stable for home. Basic metabolic panel early next week, hold losartan until creatinine normalizes. Otherwise as above. Resident Activity Tracking Resident Involvement: Resident Care Provided Care Provided: Adult Hospital Medicine
[2023-07-10 14:00] LABS: BUN Creatinine Ratio 13.9 (10-20); Calcium 9.9 mg/dl (8.6-10.3); Creatinine Clr Calc Pharmacy 32.1 ml/min; Est GFR (African American) 41.8 ml/min; Est GFR (Non-African American) 36.1 ml/min; Potassium 4.2 mmol/L (3.5-5.1)
--- NOTE | 2023-07-10 17:33 | Billing Data ---
Date of Service July 10, 2023 Coding Level of Care Code 77274 IN/OBS DISCH 30 MIN/LESS
== END 2023-07-10 16:58 | disposition home or self-care (01) | DRG 309 ==
LOC: ED 09:32 → EDINP 12:21 → SUATTDRO 12:21 → 2E 15:43